=== PATIENT | female | born 1985 | race Caucasian/White ===

== ENCOUNTER 2022-08-09 15:04 | Day surgery (SDC) | payer BC ==
[2022-08-09 15:33] VITALS: BMI 39.6
[2022-08-09] MEDS ORDERED: hydrALAZINE 20 MG/ML VIAL SLOW IVP PRN (16:12)
[2022-08-09 16:37] LABS: Bilirubin Neg (Negative); Blood, Urine Negative (Negative); CAUTI Indications for Culture Pelvic or flank pain; Clarity Clear (Clear); Glucose, Urine (Dipstick) Normal (Negative); Ketone, Urine Negative (Negative); Leukocyte Negative (Negative); Nitrite Negative (Negative); Protein, Urine (Dipstick) 15 mg/dl (Neg-Trace); Specific Gravity, Urine 1.015 (1.005-1.030); Urobilinogen Normal mg/dL (Less than 2)
[2022-08-09 16:39] LABS: Urine Culture Reflex No No
[2022-08-09 16:56] LABS: RBC/HPF 0-3 HPF (0-3); WBC/HPF 0-3 HPF (0-3)
[2022-08-09 16:57] LABS: Bacteria/HPF 1+ HPF (None Seen); Calcium Oxalate Crystals 3+ HPF (None Seen); Epithelial Cast 0-3 LPF (None Seen); Renal Epithelial 0-3 HPF (None Seen)
[2022-08-09 17:53] LABS: Bilirubin Neg (Negative); Blood, Urine Negative (Negative); CAUTI Indications for Culture Pelvic or flank pain; Clarity Clear (Clear); Glucose, Urine (Dipstick) Normal (Negative); Ketone, Urine Negative (Negative); Leukocyte Negative (Negative); Nitrite Negative (Negative); Protein, Urine (Dipstick) Negative (Neg-Trace); Urobilinogen Normal mg/dL (Less than 2)
[2022-08-09 17:56] LABS: Urine Culture Reflex No No
[2022-08-09 18:03] LABS: RBC/HPF 0-3 HPF (0-3); WBC/HPF 0-3 HPF (0-3)
[2022-08-09 18:04] LABS: Bacteria/HPF Rare-Few HPF (None Seen)
== END 2022-08-09 17:40 | disposition home health service (06) ==
LOC: CSHLD/OP 15:04
PROVIDERS: ATTEND Family Medicine
DX: O26.892 Other specified pregnancy related conditions, second trimester (principal); R10.30 Lower abdominal pain, unspecified; O09.522 Supervision of elderly multigravida, second trimester; O99.891 Other specified diseases and conditions complicating pregnancy; M53.3 Sacrococcygeal disorders, not elsewhere classified; Z3A.25 25 weeks gestation of pregnancy
CPT/HCPCS: 81001; 87480; 87510; 87660; 99284

== ENCOUNTER 2022-10-13 10:23 | Day surgery (SDC) | payer BC ==
[2022-10-13 10:54] VITALS: BMI 40.8
[2022-10-13] MEDS ORDERED: hydrALAZINE 20 MG/ML VIAL SLOW IVP PRN (11:37)
== END 2022-10-13 14:24 | disposition home or self-care (01) ==
LOC: CSHLD/OP 10:23
PROVIDERS: ATTEND Family Medicine
DX: O47.03 False labor before 37 completed weeks of gestation, third trimester (principal); O36.8130 Decreased fetal movements, third trimester, not applicable or unspecified; Z79.82 Long term (current) use of aspirin; Z79.899 Other long term (current) drug therapy; Z3A.34 34 weeks gestation of pregnancy
CPT/HCPCS: 76819; 99282